=== PATIENT | male | born 1950 | race Caucasian/White ===

== ENCOUNTER 2016-12-17 06:05 | Day surgery (SDC) | payer MEDICARE, BC ==
[~2016-12-17] VITALS: Ht 195.6 cm; Wt 119.7 kg
[~2016-12-17 06:05] MED LIST: ASA CHILDREN'S81 MG PO; B-12 INJ1000 MCG/M SQ; CELEBREX200 MG PO; COUMADIN5 MG PO; FLUOXETINE HCL40 MG PO; LOPRESSOR DPS50 MG PO; LOVENOX DP100 MG/1 M SQ; MAPAP PM (TYLEN1 TAB PO; NORVASC5 MG PO; TAMBOCOR DPS50 MG PO; ZESTRIL DPS20 MG PO
--- NOTE | 2016-12-18 08:21 | OR ---
ADMIT: 12/17/2016 RM/LOC: [facility] MR#: [id number] [facility] [address] [place] [id number] LATESHARicardo YOGI SIL[place]MAN [place], [place] [id number] Operative/Delivery Room Report SEX: M AGE: 66 : 1950 SURGERY DATE: 12/17/2016 SURGEON: Rikki Stauffer MD PROCEDURE: Total colonoscopy with hot biopsy polypectomy. PREOPERATIVE DIAGNOSIS: Screening colonoscopy. POSTOPERATIVE DIAGNOSES: 1. Diverticulosis. 2. Anal polyp. PROCEDURE IN DETAIL: The patient brought to procedure room, placed in left lateral decubitus position. Informed consent had been obtained preoperatively. The risks, benefits including but not limited to, perforation, sedation, bleeding were discussed with the patient and agreed upon. All questions were answered, alternatives discussed. The patient agreed. Monitored anesthesia care was provided by Shaheen Houser CRNA with propofol. The anal inspection, digital examination revealed no abnormalities or obstructing masses. The prostate was normal in size, texture, and contour without nodularity. Olympus videoendoscope, model CF-H180AL was inserted into the rectum and advanced to the cecum without difficulty. The appendiceal orifice and ileocecal valve were identified. The valve was cannulated. The terminal ileum appeared normal for approximately 10 cm. Scope was slowly withdrawn through a normal cecum, ascending, and transverse colon. In the descending and sigmoid, there were scattered, wide-mouthed diverticula present without mucosal abnormality. The rectum was normal. In the anal area and retroflexing the scope, there was what appeared to be an epithelialized tag within the anal mucosa, this was grasped with the hot biopsy forceps, cauterized, and retrieved in piecemeal fashion. No other abnormalities were identified. The patient tolerated the procedure well. No complications were expected. Blood loss was less than 1 mL. He will call me in 1 week for his biopsy report, sooner if he should have any postoperative problems. If there is any adenomatous change in the material removed, would recommend he have repeat colonoscopy in 5 years. Otherwise, a 10-year interval would be sufficient. Rikki Stauffer MD/ rudy JOB #: [id number] CC: Rikki Stauffer, Attending Physician Kevin Miranda, Family Physician Tommy Jones MD
== END 2016-12-17 09:00 | disposition home or self-care (01) ==
LOC: SSS 06:05
PROC: 0DBP8ZX Excision of Rectum, Via Natural or Artificial Opening Endoscopic, Diagnostic (ICD-10-PCS; principal; 2016-12-17)
DX: Z12.11 Encounter for screening for malignant neoplasm of colon (principal); K62.1 Rectal polyp; K57.30 Diverticulosis of large intestine without perforation or abscess without bleeding; I10 Essential (primary) hypertension; Z86.73 Personal history of transient ischemic attack (TIA), and cerebral infarction without residual deficits; Z98.890 Other specified postprocedural states; Z95.0 Presence of cardiac pacemaker; Z79.899 Other long term (current) drug therapy